=== PATIENT | female | born 1955 | race Caucasian/White ===

== ENCOUNTER 2019-01-22 13:37 | Outpatient (CLI) | payer BC, OTHER | END 2019-01-22 23:59 | disposition home or self-care (01) | LOC: STAR 13:37 | PROVIDERS: ATTEND Orthopaedic Surgery | DX: Z01.818 Encounter for other preprocedural examination (principal); M17.12 Unilateral primary osteoarthritis, left knee | CPT/HCPCS: 36415; 80048; 85025; 87081; 93005 ==